=== PATIENT | female | born 1950 | race Two or more races ===

== ENCOUNTER 2017-02-20 06:00 | Day surgery (SDC) | payer MEDICARE, MEDICAID ==
--- NOTE | 2017-02-17 14:42 | History & Physical ---
ADMIT DATE: CHIEF COMPLAINT: Medical evaluation and clearance on elective podiatric patient. The patient is complaining of left foot pain. HISTORY OF PRESENT ILLNESS: This is a 66-year-old female with history of obesity, hypertension, osteoarthritis, asthma who is being seen ____ from Dr. Vásquez for medical clearance and evaluation. The patient with good functional capacity, able to walk several blocks without any chest pain, shortness of breath, only limited by pain in left foot as well as her right knee. The patient apparently had a stress test in 12/2016 and she did develop ____ with Dr. Yoon in ____. PAST MEDICAL HISTORY: As mentioned in history present illness. PAST SURGICAL HISTORY: Right hand surgery 3 months ago, left knee surgery 7 years ago, and lumbar surgery in 1987. ALLERGIES: CODEINE DEVELOPED NAUSEA AND VOMITING. VICODIN DEVELOPS HIVES. MEDICATIONS: Voltaren and water pill. FAMILY HISTORY: Noncontributory. SOCIAL HISTORY: Denies tobacco, alcohol or intravenous drug use. 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 The patient is with one child and five grandchildren. REVIEW OF SYSTEMS: GENERAL: The patient has been trying to lose weight with a lot of walking from 250 to 195 in several months. HEENT: No blurred vision or pain. LUNGS: No diagnosis of COPD. The patient with a slight asthma. HEART: The patient with a slight high blood pressure. According to her, no chest pain or shortness of breath. ABDOMEN: No nausea, vomiting or pain. GENITOURINARY: The patient denies any increased frequency or dysuria. NEUROLOGIC: No headache, seizure or syncope. PSYCHIATRIC: The patient denies. EXTREMITIES: Complaining of foot pain and knee pain. PHYSICAL EXAMINATION: VITAL SIGNS: Blood pressure 110/73, respirations 18, pulse 80, temperature 98.5. GENERAL: Elderly female, mildly obese. NECK: Supple, no mass, alert, oriented x 4. LUNGS: Coarse breath sounds with few rhonchi. HEART: Regular rate and rhythm without appreciable murmurs. ABDOMEN: Soft, nontender. Positive bowel sounds. EXTREMITIES: Positive slight fullness in the right knee, deformity volar toes. NEUROLOGIC: Limited, moving 4 extremities. Gait is within normal range. LABORATORY DATA: All pending. CBC, Chem-20, PT, PTT, chest x-ray as well as EKG. ASSESSMENT AND PLAN: Bilateral foot pain, obesity, hypertension, osteoarthritis, asthma. We will review the patient's laboratory CBC, Chem-20 as well as EKG and chest x-ray. The patient with good functional capacity. This should place the patient at a low cardiac risk for any intraoperative complications. Once again, thank you very much, Dr. Vásquez for allowing me to participate in this patient's case. She is very pleasant. We will be more than happy to follow with you during her elective surgery. JOB# [id number]
[2017-02-20 06:41] VITALS: BP 112/82
[2017-02-20 07:02] LABS: URINE BILIRUBIN NEGATIVE (NEGATIVE); URINE BLOOD TRACE (NEGATIVE); URINE GLUCOSE (UA) NEGATIVE (NEGATIVE); URINE KETONE NEGATIVE (NEGATIVE); URINE PROTEIN NEGATIVE (NEGATIVE); URINE UROBILINOGEN 0.2 E.U./dL (0.2 - 1.0)
[2017-02-20 07:04] LABS: INR 0.94 (0.5-1.4); PROTHROMBIN TIME (TEST) 9.8 SECONDS (9.5-11.5)
[2017-02-20 07:05] LABS: URINE COLOR YELLOW
[2017-02-20 07:07] LABS: % BASOPHILS 0.5 % (0.0-2.0); % EOSINOPHILS 6.6 % (0.0-5.0); % LYMPHOCYTES 40.8 % (20.0-50.0); % MONOCYTES 5.7 % (2.0-10.0); % NEUTROPHILS 46.4 % (40.0-80.0); HEMATOCRIT 35.4 % (41.0-60); HEMOGLOBIN 11.9 gm/dL (12-16); MEAN CELL VOLUME 82.8 fl (81-100); MEAN CORPUSCULAR HEMOGLOBIN 27.9 pg (27.0-31.0); MEAN CORPUSCULAR HGB CONC 33.7 pg (28.0-36.0); MEAN PLATELET VOLUME 7.8 fl; NEUTROPHILE ABSOLUTE 3.9 Th/cmm (1.8-8.0); PLATELET COUNT 435 Th/cmm (150-400); RED BLOOD COUNT 4.28 Mil/cmm (3.80-5.20); RED CELL DISTRIBUTION WIDTH 13.3 % (11.5-20.0); WHITE BLOOD COUNT 8.4 Th/cmm (4.8-10.8)
[2017-02-20 07:10] LABS: ALB/GLOB RATIO 1.6 (1.0-1.8); ALKALINE PHOSPHATASE 91 U/L (34-104); ANION GAP 11.5 (7.0-16.0); BILIRUBIN,TOTAL 0.3 mg/dL (0.3-1.0); BUN - UREA NITROGEN 19 mg/dL (7-25); BUN/CREATININE RATIO 21.1; CALCIUM SERUM 9.3 mg/dL (8.6-10.3); CARBON DIOXIDE 27.9 mEq/L (21.0-31.0); CHLORIDE 101 mEq/L (98-107); CREATININE - SERUM 0.9 mg/dL (0.6-1.2); GLUCOSE 100 mg/dL (70-105); POTASSIUM SERUM 3.4 mEq/L (3.5-5.1); SGOT 11 U/L (13-39); SGPT/ALT 10 U/L (7-52); SODIUM SERUM 137 mEq/L (136-145)
[2017-02-20 07:12] LABS: URINE BACTERIA FEW /hpf (NONE SEEN); URINE EPITHELIAL CELLS MODERATE /lpf (FEW); URINE WBC 0-2 /hpf (0-5)
[2017-02-20] MEDS ORDERED: Bupivacaine 0.5% 10 mL Vial ONE ×3 (07:20→07:27)
[2017-02-20] MEDS ORDERED: Midazolam 1mg/ml 2 ml vial IV ONE (07:46)
[2017-02-20] MEDS ORDERED: fentaNYL Citrate 100 mcg/2mL Vial ONE (07:47)
[2017-02-20] MEDS ORDERED: metroNIDAZOLE 500mg/NS 100mL 500 MG/100 ML BAG IV ONE (07:50)
--- NOTE | 2017-02-20 08:21 | Diagnostic Imaging Report ---
Right foot 3 views Indication: Pain, preop Comparison: Left foot x-rays the same day Findings: Hammertoes are seen limiting the examination. There is also deformity of the second phalanges. Osteopenia is noted. Mild degenerative changes are noted. No evidence of an acute fracture or significant focal soft tissue swelling. No gross erosions identified. Impression: No evidence of an acute fracture. Hammertoes with deformity of the second phalanges. Please correlate with clinical findings. Osteopenia. Mild degenerative changes. In the setting of trauma, if clinical symptoms persist and there is continued concern for an occult fracture, follow up exams in 5-7 days is suggested.
--- NOTE | 2017-02-20 08:23 | Diagnostic Imaging Report ---
Left foot 3 views Indication: pain, preop Comparison: Right foot x-rays the same day Findings: Hammertoes are seen with deformity of the second phalanges limiting evaluation of the phalanges. Mild degenerative changes are noted. Osteopenia is noted. No evidence of an acute fracture or significant focal soft tissue swelling. Small plantar calcaneal spur is noted. Impression: No evidence of an acute fracture. Hammertoe deformity of the second phalanges limiting evaluation of these regions. Osteopenia patent. Mild degenerative changes. Small plantar calcaneal spur. In the setting of trauma, if clinical symptoms persist and there is continued concern for an occult fracture, follow up exams in 5-7 days is suggested.
[2017-02-20] MEDS ORDERED: Meperidine 25 mg/mL 1mL Syr IVP PRN (08:26)
[2017-02-20] MEDS ORDERED: Lactated Ringer 1,000 ML IV SCH (08:30)
--- NOTE | 2017-02-22 17:09 | Pathology Report ---
[id number] Collection Date: 02/20/2017 Surgeon: Dr. Jolly Vásquez Specimen Description: Bone tissue, hammer toes Gross Description: Received in formalin are three oval portions of campuzano-white osteocartilaginous tissue ranging from 1.0 to 1.2 cm. in size. Each fragment is covered by a glistening articular cartilaginous surface. Sectioning shows bony and cartilaginous tissue with no focal lesions. Gross description only. Gross Pathologic Diagnosis: Osteocartilaginous tissue consistent with the clinical impression of hammer toes. [facility]# [id number] GARCIA
== END 2017-02-20 10:35 | disposition home or self-care (01) ==
LOC: MSII 06:00
PROVIDERS: ATTEND Podiatrist Foot & Ankle Surgery
DX: M20.42 Other hammer toe(s) (acquired), left foot (principal); M20.41 Other hammer toe(s) (acquired), right foot
CPT/HCPCS: 28285 ×3; 93005; 73630; 36415; 85025; 85610; 85730; 81001; 80053; 88304; J2704 ×2; J2250; J2405 ×2; J3010; 90799; J2001; X6206; X6530; Z7610

== ENCOUNTER 2018-01-29 05:32 | Day surgery (SDC) | payer MEDICARE, MEDICAID ==
--- NOTE | 2018-01-26 11:10 | History & Physical ---
ADMIT DATE: CHIEF COMPLAINT: Medical evaluation and clearance. HISTORY OF PRESENT ILLNESS: This is a 67-year-old female with history of hypertension, arthritis, asthma, is scheduled for elective bilateral foot surgery. The patient has been complaining of pain with ambulation. Denies any chest pain, shortness of breath. Denies any cardiac or pulmonary issues. PAST MEDICAL HISTORY: As mentioned in history of present illness. PAST SURGICAL HISTORY: Status right hand surgery, status post left knee surgery and lumbar surgery. ALLERGIES: CODEINE DEVELOPS NAUSEA AND VOMITING. VICODIN DEVELOPS HIVES. MEDICATIONS: Albuterol as needed, Claritin, Voltaren, and hydrochlorothiazide. FAMILY HISTORY: Diabetes, coronary artery disease. SOCIAL HISTORY: Denies tobacco, alcohol or intravenous drug use. 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 The patient has a partner with one child. REVIEW OF SYSTEMS: GENERAL: The patient denies any constitutional symptoms. The patient has been trying to lose weight. HEENT: No blurred vision. NECK: No neck pain. LUNGS: No diagnosis of COPD. The patient does have asthma. HEART: The patient with hypertension. Denies coronary artery disease or any cardiac symptoms. ABDOMEN: No nausea, vomiting, or pain. GENITOURINARY: The patient denies any increased frequency or dysuria. NEUROLOGIC: No headache, seizure or syncope. PSYCHIATRIC: As stated above. PHYSICAL EXAMINATION: VITAL SIGNS: Blood pressure 108/60, respirations 18, pulse 80, temperature 98.1. GENERAL: A well-developed elderly female, moderately obese. NECK: Supple. No mass. LUNGS: Equal breath sounds, otherwise clear to auscultation. HEART: Regular rate and rhythm without appreciable murmurs. ABDOMEN: Soft, globular, positive bowel sounds. EXTREMITIES: Positive excoriations. NEUROLOGIC: Limited. LABORATORY DATA: Pending CBC, Chem-20, chest x-ray, and EKG. ASSESSMENT AND PLAN: Bilateral foot pain for podiatric surgery, hypertension, obesity, osteoarthritis, history of asthma. The patient denies any cardiac or pulmonary issues, appears to be in good health. We will review the patient's laboratories. The patient is with a low cardiac risk for any intraoperative complications. Thank you very much Dr. Vásquez for allowing me to participate in this very pleasant lady's case. [facility]# [id number]
[2018-01-29] MEDS ORDERED: Lidocaine 2% Vial 20 mL Vial ONE (06:57)
[2018-01-29] MEDS ORDERED: Dexamethasone Sodium Phos 4 mg/mL Vial ONE (07:27)
[2018-01-29] MEDS ORDERED: fentaNYL Citrate 100 mcg/2mL Vial ONE (07:34)
[2018-01-29] MEDS ORDERED: Propofol **SURGERY USE ONLY** 20 ML IV ONE (07:38)
--- NOTE | 2018-01-29 08:16 | Diagnostic Imaging Report ---
Portable chest x-ray HISTORY: Cough, preoperative There is a poor inspiration. The heart appears to be enlarged. Allowing for the poor inspiration, no acute focal pulmonary processes are seen. IMPRESSION: 1. No acute focal pulmonary processes 2. Cardiomegaly
--- NOTE | 2018-01-29 08:17 | Diagnostic Imaging Report ---
Right foot (3 views, weightbearing) HISTORY: Pain Normal bone density. There is deformity involving the head of the second proximal phalanx which appears chronic. Spur formation noted off the plantar and posterior portions of the calcaneus. Findings suggesting pes planus noted. No acute abnormalities. IMPRESSION: 1. No acute abnormalities 2. Deformity which appears chronic involving the head of the second proximal phalanx 3. Calcaneal spur formation 4. Findings suggesting pes planus
--- NOTE | 2018-01-29 08:19 | Diagnostic Imaging Report ---
Left foot (3 views), weightbearing Flexion deformities involve the third, fourth, fifth PIP joints. Deformity which appears chronic about the third PIP joint. Deformity also involves the head of the second proximal phalanx. No acute abnormalities. No fractures. Minimal spur formation noted off the dorsal and plantar aspects of the posterior calcaneus. IMPRESSION: 1. No acute bony abnormalities 2. Flexion deformity about the third PIP joints and deformity involving the head of the second proximal phalanx and deformity about the second PIP joint.
--- NOTE | 2018-02-01 15:33 | Pathology Report ---
[id number] Collection date: 01/29/2018 Surgeon: Dr. Jolly Vásquez Specimen Description: Bunion and soft tissue. Gross Description: Received in formalin are four portions of campuzano-white osteocartilaginous tissue ranging from 0.8 to 1.3 cm in greatest dimension, with several articular cartilaginous surfaces appreciated. There are no focal lesions. Gross description only. Gross Pathologic Diagnosis: Osteocartilaginous tissue fragments compatible with bunion. [facility]# [id number] MTDD
== END 2018-01-29 10:30 | disposition home or self-care (01) ==
LOC: MSII 05:32
PROVIDERS: ATTEND Podiatrist Foot & Ankle Surgery
DX: M20.42 Other hammer toe(s) (acquired), left foot (principal); M20.41 Other hammer toe(s) (acquired), right foot; J45.909 Unspecified asthma, uncomplicated; I10 Essential (primary) hypertension; M19.90 Unspecified osteoarthritis, unspecified site; E66.9 Obesity, unspecified
CPT/HCPCS: 28285 ×2; 73630 ×2; 93005; 71045; J2704; J2405; J0690; J1100; J3010; V2790; X5716; X6494; Z7610